=== PATIENT | female | born 2000 | race Caucasian/White ===

== ENCOUNTER 2024-04-04 00:19 | Emergency (ER) | payer SELFPAY ==
[2024-04-04 00:23] VITALS: BP 140/95; TEMP 97.8; O2SAT 98
== END 2024-04-04 00:35 | disposition admitted as inpatient to this hospital (09) ==
LOC: M ED 00:19
DX: Z53.21 Procedure and treatment not carried out due to patient leaving prior to being seen by health care provider (principal)

== ENCOUNTER 2024-05-08 22:55 | Outpatient (CLI) | payer SELFPAY ==
[2024-05-08 23:06] VITALS: BP 118/73
[2024-05-08 23:49] LABS: KETONE, URINE AUTO RFX NEGATIVE (NEGATIVE); MUCUS, URINE RFX SMALL (NEGATIVE); NITRITE, URINE AUTO RFX NEGATIVE (NEGATIVE); RBC, URINE AUTO RFX 26 /HPF (0-3); SQUAM EPITHELIAL CELL UR AURFX 10 /HPF (0-6)
[2024-05-09 00:01] LABS: LEUKOCYTE ESTERASE UR AUTO RFX 3+ (NEGATIVE); WBC, URINE AUTO RFX 13 /HPF (0-3)
[2024-05-09 07:26] LABS: Trichomonas vaginalis (AMP) NOT DETECTED (NEGATIVE)
[2024-05-09 07:49] LABS: GC DNA AMPLIFICATION NEGATIVE (NEGATIVE)
== END 2024-05-09 00:33 | disposition home or self-care (01) ==
LOC: M LDO 22:55
PROVIDERS: ATTEND Obstetrics & Gynecology
DX: O26.893 Other specified pregnancy related conditions, third trimester (principal); Z3A.31 31 weeks gestation of pregnancy; N89.8 Other specified noninflammatory disorders of vagina; Z87.59 Personal history of other complications of pregnancy, childbirth and the puerperium
CPT/HCPCS: 59025; 81001; 87086; 87661; 87810; 87850; G0463

== ENCOUNTER 2024-06-03 12:37 | Emergency (ER) | payer OTHER ==
[~2024-06-03] VITALS: Ht 165.1 cm; Wt 82.3 kg
[2024-06-03 12:41] VITALS: BP 113/80; O2SAT 99
[2024-06-03] MEDS ORDERED: PNV1TABL16 PO (12:51)
[2024-06-03] MEDS: NS (Normal Saline) 0.9% 1,000 ML IV ONE (13:41)
[2024-06-03 13:43] LABS: BASO % 0.3 % (0.0-1.0); EOS # 0.1 10^3/uL (0.0-0.5); EOS % 0.7 % (0.0-3.0); HEMATOCRIT 35.8 % (36.0-47.0); HEMOGLOBIN 12.2 g/dl (12.0-15.5); LYMPH # 1.5 10^3/uL (1.5-5.0); LYMPH % 19.3 % (24.0-44.0); MEAN CORPUSCULAR HEMOGLOBIN 32.2 pg (27.0-33.0); MEAN CORPUSCULAR HGB CONC 34.1 g/dl (32.0-36.5); MEAN CORPUSCULAR VOLUME 94.5 fl (80.0-96.0); MONO # 0.4 10^3/uL (0.0-0.8); MONO % 4.8 % (2.0-8.0); NEUTROPHILS # 5.6 10^3/uL (1.5-8.5); NEUTROPHILS % 74.1 % (36.0-66.0); PLATELET COUNT, AUTOMATED 209 10^3/uL (150-450); RED BLOOD COUNT 3.79 10^6/uL (4.00-5.40); WHITE BLOOD COUNT 7.5 10^3/uL (4.0-10.0)
[2024-06-03 14:14] LABS: LIPASE 28 U/L (12-53)
[2024-06-03 14:16] LABS: ALBUMIN 2.7 G/DL (3.2-5.2); ALKALINE PHOSPHATASE 101 U/L (35-104); ALT/SGPT 17 U/L (7.0-40); AST/SGOT 20 U/L (<34); BILIRUBIN,TOTAL 0.6 MG/DL (0.3-1.2); BLOOD UREA NITROGEN 7 MG/DL (9-23); CALCIUM LEVEL 8.7 MG/DL (8.5-10.1); CARBON DIOXIDE LEVEL 24 MMOL/L (20-31); CHLORIDE LEVEL 103 MMOL/L (98-107); CREATININE FOR GFR 0.71 MG/DL (0.55-1.30); GLOMERULAR FILTRATION RATE > 90.0 (>60); GLUCOSE, FASTING 75 MG/DL (60-100); POTASSIUM SERUM 3.6 MMOL/L (3.5-5.1); SODIUM LEVEL 139 MMOL/L (136-145); TOTAL PROTEIN 6.8 G/DL (5.7-8.2)
[2024-06-03 14:27] VITALS: TEMP 98.4
== END 2024-06-03 14:38 | disposition admitted as inpatient to this hospital (09) ==
LOC: M ED 12:37
DX: R10.32 Left lower quadrant pain (principal); Z3A.35 35 weeks gestation of pregnancy; V49.10XA Passenger injured in collision with unspecified motor vehicles in nontraffic accident, initial encounter; Z79.810 Long term (current) use of selective estrogen receptor modulators (SERMs)